=== PATIENT | female | born 1970 | race Caucasian/White ===

== ENCOUNTER 2021-12-11 06:32 | Emergency (ER) | payer BC, SELFPAY, OTHER ==
[~2021-12-11] VITALS: Ht 157.5 cm; Wt 84.4 kg
[2021-12-11 06:37] VITALS: BP_SYST 126
--- NOTE | 2021-12-11 06:50 | NUR ---
Patient to ER bed 5 to gown for evaluation. Side rails up.
--- NOTE | 2021-12-11 06:51 | NUR ---
ASKED PATIENT FOR URINE, OFFERED URINE CUP HOWEVER PATIENT UNABLE TO URINATE
--- NOTE | 2021-12-11 06:52 | NUR ---
ER at bedside examining patient.
[2021-12-11] MEDS ORDERED: MORPHINE 4 MG INJ. 4 MG/ML VIAL IVP ONE (07:00)
[2021-12-11] MEDS ORDERED: PROCHLORPERAZINE EDISYLATE 10 MG/2 ML VIAL IVP ONE (07:15)
[2021-12-11 07:25] LABS: BASOPHILS % (AUTO) 0.2 % (0.0-2.0); EOSINOPHILS % (AUTO) 0.1 % (0.0-4.0); HEMATOCRIT 37.8 % (36-48); HEMOGLOBIN 12.6 g/dL (12.0-16.0); LYMPHOCYTES # (AUTO) 0.6 K/uL (1.0-5.5); LYMPHOCYTES % (AUTO) 6.4 % (20.5-51.5); MEAN CORPUSCULAR HEMOGLOBIN 28 pg (27-31); MEAN CORPUSCULAR HGB CONC 33 % (32-36); MEAN CORPUSCULAR VOLUME 84 fL (79.0-98.0); MONOCYTES # (AUTO) 0.3 K/uL (0.0-1.0); MONOCYTES % (AUTO) 2.7 % (1.7-9.3); NEUTROPHILS # (AUTO) 8.5 K/uL (1.8-7.7); NEUTROPHILS % (AUTO) 90.6 % (40.0-70.0); PLATELET COUNT (AUTO) 268 K/uL (130-430); RED BLOOD CELL COUNT(AUTO) 4.52 MIL/uL (4.2-6.2); RED CELL DISTRIBUTION WIDTH 14.2 % (9.0-15.0); WHITE BLOOD COUNT (AUTO) 9.3 K/uL (4.8-10.8)
--- NOTE | 2021-12-11 07:33 | NUR ---
REPORT GIVEN TO MATILDE RN AM NURSE FOR CHANGE OF SHIFT, VERBALIZED UNDERSTANDING
--- NOTE | 2021-12-11 07:40 | NUR ---
Recieved report from [employer] nurse. Pt in bed resting with 3/10 abdominal pain. at bedside. 22g IV intact on right hand. EKG done and it was NSR. Still waiting for pt to provide urine.
[2021-12-11] MEDS ORDERED: NACL 0.9% 1,000 ML IV ONE (07:45)
--- NOTE | 2021-12-11 07:48 | NUR ---
Pt at CT.
--- NOTE | 2021-12-11 07:54 | NUR ---
Pt back from CT. at bedside.
--- NOTE | 2021-12-11 08:04 | NUR ---
VSS. Re-assessed pt's pain level and pt states her pain now is a 4/10. Morphine medication helping pt states. Will continue to monitor. NS 0.9 1000ml running bolus.
[2021-12-11 08:18] LABS: CALCIUM 8.6 mg/dL (8.4-11.0); CREATININE 0.63 mg/dL (0.55-1.30); POTASSIUM 3.8 mmol/L (3.5-5.1)
[2021-12-11 08:28] LABS: ALBUMIN 3.8 g/dL (3.4-4.8); TOTAL BILIRUBIN 0.3 mg/dL (0.0-1.0)
--- NOTE | 2021-12-11 08:34 | NUR ---
Pt still unable to provide urine at this time.
--- NOTE | 2021-12-11 08:42 | NUR ---
Pt stated her pain is starting to get worse again. Rates her pain 04/20. ER physician notified. NS 0.9 1000ml still currently running bolus. No infiltration noted at IV site.
[2021-12-11] MEDS ORDERED: MORPHINE 2 MG/ML INJ. SYRINGE IVP ONE (08:45)
[2021-12-11] MEDS ORDERED: HYDR-3917 PO (10:58)
[2021-12-11] MEDS ORDERED: AMOX500C2 PO (10:58)
--- NOTE | 2021-12-11 11:07 | NUR ---
Patient given written and verbal discharge instructions and verbalizes understanding. ER MD discussed with patient the results and treatment provided. Patient in stable condition. ID arm band removed. IV catheter removed intact and dressing applied, no active bleeding. Rx of Amoxicillin and Hydrocodone given. Patient educated on pain management and to follow up with PMD. Pain Scale . Opportunity for questions provided and answered. Medication side effect fact sheet provided.
[2021-12-11 11:16] VITALS: BP_SYST 134
== END 2021-12-11 11:16 | disposition home or self-care (01) ==
LOC: SED 06:32
DX: K80.20 Calculus of gallbladder without cholecystitis without obstruction (principal); R10.84 Generalized abdominal pain; Z79.899 Other long term (current) drug therapy
CPT/HCPCS: 36415; 74176; 76376; 80053; 83690; 84484; 84702; 85025; 93005; 96361; 96374; 96375; 96376; 99285; J0780; J2270 ×2; J7030

== ENCOUNTER 2022-03-19 06:55 | Day surgery (SDC) | payer BC, OTHER ==
[~2022-03-19] VITALS: Ht 157.5 cm; Wt 81.6 kg
[~2022-03-19 06:55] MED LIST: AMOX500C2 PO; HYDR-3917 PO
[2022-03-19] MEDS ORDERED: CEFAZOLIN 1 GM IVPB PREMIX 50 ML IV ONE ×2 (07:00→11:35)
[2022-03-19 07:48] LABS: HCG,QUAL RESULT NEGATIVE (NEGATIVE)
[2022-03-19] MEDS ORDERED: MIDAZOLAM HCL 2 MG/2 ML VIAL (VERSED) ONE (09:26)
[2022-03-19] MEDS ORDERED: NS 50 ML BAG IV ONE (09:26)
[2022-03-19] MEDS ORDERED: SEVOFLURANE 15 MIN GAS INH ONE (09:26)
[2022-03-19] MEDS ORDERED: PROPOFOL 200MG/ 20ML VIAL (DIPRIVAN) IV ONE (09:26)
[2022-03-19] MEDS ORDERED: SUGAMMADEX SODIUM 200 MG/2 ML VIAL IV ONE (09:26)
[2022-03-19] MEDS ORDERED: DEXAMETHASONE SOD PHOSPHATE 4 MG/ML VIAL ONE (09:26)
[2022-03-19] MEDS ORDERED: ONDANSETRON HCL 4 MG/2 ML VIAL ONE (09:26)
[2022-03-19] MEDS ORDERED: BUPIVACAINE /PF 0.25% 30 ML VIAL INJ ONE (09:26)
[2022-03-19] MEDS ORDERED: HYDROmorphone 2 MG/ML VIAL ONE (09:26)
[2022-03-19] MEDS ORDERED: NS IRRIG SOLN 1000 ML IR ONE (09:26)
[2022-03-19] MEDS ORDERED: LR 1,000 ML IV.SOLN IV ONE (09:26)
[2022-03-19] MEDS ORDERED: NS 1000 ML IV.SOLN IV ONE (09:26)
[2022-03-19] MEDS ORDERED: ROCURONIUM BROMIDE 10 MG/ML (ZEMURON) ONE (09:26)
[2022-03-19] MEDS ORDERED: SUCCINYLCHOLINE CHLORIDE 20 MG/ML(QUELICIN) ONE (09:26)
[2022-03-19] MEDS ORDERED: KETOROLAC TROMETHAMINE 30 MG VIAL ONE (09:26)
[2022-03-19] MEDS ORDERED: ACETAMINOPHEN I.V. 1000 MG 100 ML IV ONE ×3 (10:15)
[2022-03-19] MEDS ORDERED: HYDROmorphone 1 MG/ML INJ. CARTRIDGE IVP PRN ×2 (10:15→10:45)
[2022-03-19] MEDS ORDERED: ONDANSETRON HCL 4 MG/2 ML VIAL IVP PRN (10:15)
[2022-03-19] MEDS ORDERED: KETOROLAC TROMETHAMINE 30 MG VIAL IVP PRN (10:15)
[2022-03-19] MEDS ORDERED: HYDROcodone/ACETAMIN 5-325 MG TAB (NORCO/ VICODIN) PO PRN ×2 (10:45)
[2022-03-19] MEDS ORDERED: D5/0.45 NS 1,000 ML IV SCH (10:45)
[2022-03-19] MEDS ORDERED: ceFAZolin SODIUM 1 GM in D5W 50 ML IV SCH (11:45)
[2022-03-19] MEDS ORDERED: ceFAZolin SODIUM 1 GM in D5W 50 ML IV ONE (12:15)
[2022-03-19 15:17] VITALS: BP_SYST 123
== END 2022-03-19 15:00 | disposition home or self-care (01) ==
LOC: SDS 06:55 → SMU 06:56 → SDS 15:00
PROVIDERS: ATTEND Colon & Rectal Surgery
DX: K80.12 Calculus of gallbladder with acute and chronic cholecystitis without obstruction (principal); E78.5 Hyperlipidemia, unspecified; Z88.1 Allergy status to other antibiotic agents; Z79.899 Other long term (current) drug therapy; Z20.822 Contact with and (suspected) exposure to COVID-19
CPT/HCPCS: 36415 ×2; 47563; 74300; 84703; 87426; 87635; 88304; C1727; C1758; J0131; J0330; J0690; J1100; J1170; J1885; J2405; J2704; J3465; J3490 ×2; J7030; J7120; Q9967; U0003; 76000